=== PATIENT | male | born 1990 | race Two or more races ===

== ENCOUNTER 2025-04-14 08:25 | Inpatient (IN) | payer OTHER ==
[2025-04-14] VITALS (24 sets, daily range): BP systolic 98–161; BP diastolic 57–144; TEMP 100.2–101; O2SAT 98–100
[~2025-04-14] VITALS: Ht 172.7 cm; Wt 59.4 kg
[~2025-04-14 08:25] MED LIST: ACET-868 GT; ACET160L44 GT; AMAN50SY GT; AMIN30LI66 GT; AMLO5TAB4 GT; ASCO-352 GT; BISA10SU11 RC; CHLO473M5 MM; CRAN425C6 GT; DOCU100T2 GT; ENOX30DI5 SQ; FAMO40TA7 GT; GENT5DRO23 EACHEYE; GLYC2TAB21 GT; HYDR-4076 GT; HYDR15SO11 GT; LEVA0.6320 IH; LEVE100S GT; MAGN400O6 GT; MULT-447 GT; NA P133E RC; NUTR250L62 GT; ONDA4TAB5 GT; PHEN50TA4 GT; PHEN64.8 GT; POLY17PO4 GT; PROP40TA7 GT; SENN-291 GT; TOBR40VI2 IV
[2025-04-14] MEDS: PIPERACILLIN /TAZOBACTAM 3.375 G in IV D5W 50 ML IV ONE (08:30)
[2025-04-14] MEDS ORDERED: ACETAMINOPHEN 650 MG/SUPP.RECT RC ONE (08:32)
[2025-04-14] MEDS: IV NS 0.9% 1,000 ML BAG IV ONE (08:40)
[2025-04-14 08:45] LABS: PLATELET COUNT (AUTO) 377 K/uL (150-450); RED BLOOD CELL COUNT(AUTO) 2.94 MIL/uL (4.5-6.0); RED CELL DISTRIBUTION WIDTH 16.3 % (11.5-15.0); WHITE BLOOD COUNT (AUTO) 19.8 K/uL (4.3-11.0)
[2025-04-14] MEDS: ACETAMINOPHEN 650 MG/SUPP.RECT RC ONE (08:49)
[2025-04-14 09:00] LABS: CALCIUM, SERUM 8.9 mg/dL (8.5-10.1); CREATININE 0.5 mg/dL (0.6-1.3); SODIUM SERUM 146.0 mmol/L (136-145); UREA NITROGEN, BLOOD 20.0 mg/dL (7-18)
[2025-04-14] MEDS: VANCOMYCIN 1 GM in IV D5W 250 ML IV ONE (09:00)
[2025-04-14 09:04] LABS: INR 1.13 (0.91-1.10)
[2025-04-14 09:05] LABS: ASPARTATE AMINOTRANSFERASE 15.0 U/L (15-37); TOTAL PROTEIN, SERUM 8.0 g/dL (6.4-8.2)
[2025-04-14 09:09] LABS: LACTIC ACID 1.2 mmol/L (0.4-2.0)
[2025-04-14 09:19] LABS: ABG BASE EXCESS 1.3 mmol/L (-2.0-3.0); ABG OXYGEN SATURATION 99.0 % (94.0-98.0); ABG PCO2 35.2 mmHg (35.0-48.0); ABG PH 7.465 (7.350-7.450); ABG PO2 156.7 mmHg (83.0-108.0); ABG TOTAL HEMOGLOBIN 11.0 G/dL (13.5-17.5); FLOW, BLOOD GAS 4.00 L/min (0.00-30.00); FRACTIONATED INSPIRED OXYGEN 37.0 %; SITE, ABG RIGHT RADIAL
[2025-04-14] MEDS ORDERED: ACET325T53 GT (09:41)
[2025-04-14] MEDS ORDERED: ZINC50TA69 GT (09:41)
[2025-04-14] MEDS ORDERED: MULT9LIQ9 GT (09:41)
[2025-04-14] MEDS ORDERED: TRAM50TA2 PO (09:41)
[2025-04-14] MEDS ORDERED: METO25TA20 GT (09:41)
[2025-04-14 10:57] LABS: APPEARANCE,URINE SLIGHTLY CLOUDY (CLEAR); BLOOD, URINE NEGATIVE Ery/uL (NEGATIVE); LEUKOCYTE ESTERASE ,URINE 1+ (NEGATIVE); NITRITE, URINE NEGATIVE (NEGATIVE); UGLUCOSE NEGATIVE (NEGATIVE)
[2025-04-14 11:06] LABS: ADD URINE CULTURE YES; CALCIUM OXALATE CRYSTALS,UR Rare /HPF (None Seen); SQUAMOUS EPITHELIAL CELL,UR 0-2 /HPF (None Seen)
[2025-04-14] MEDS ORDERED: Z GUARD REMEDY 4 OZ OINT TP PRN (12:00)
[2025-04-14] MEDS ORDERED: ONDANSETRON HCL/PF 4 MG/2 ML VIAL IVP PRN (12:00)
[2025-04-14] MEDS ORDERED: DOSING PER PHARMACY-VANCOMYCIN IV XX PRN (12:30)
[2025-04-14] MEDS ORDERED: DOSING PER PHARMACY-TOBRAMYCIN IV XX PRN (12:30)
[2025-04-14] MEDS: ENOXAPARIN SODIUM 40 MG/0.4 ML DISP.SYRIN SQ SCH (15:36)
[2025-04-14] MEDS: MEROPENEM 1 G in IV NS 0.9% 100 ML IV SCH (15:39)
[2025-04-14] MEDS: DAKINS FULL STRENGTH (0.5%) 480 ML BOTTLE TOP SCH (15:39)
[2025-04-14] MEDS: IV NS 0.9% 1,000 ML IV PRN (15:44)
[2025-04-14] MEDS: VANCOMYCIN 1 GM in IV D5W 250ml IV SCH (16:44)
[2025-04-14] MEDS: ACETAMINOPHEN 650 MG/SUPP.RECT RC PRN (19:51)
[2025-04-15] VITALS (27 sets, daily range): BP systolic 108–138; BP diastolic 60–93; TEMP 98.3–101.3; O2SAT 96–100
[2025-04-15 04:33] LABS: PLATELET COUNT (AUTO) 293 K/uL (150-450); RED BLOOD CELL COUNT(AUTO) 2.44 MIL/uL (4.5-6.0); RED CELL DISTRIBUTION WIDTH 15.9 % (11.5-15.0); WHITE BLOOD COUNT (AUTO) 8.3 K/uL (4.3-11.0)
[2025-04-15 04:47] LABS: CALCIUM, SERUM 8.9 mg/dL (8.5-10.1); CREATININE 0.4 mg/dL (0.6-1.3); PHOSPHORUS 3.8 mg/dL (2.5-4.9); SODIUM SERUM 146.0 mmol/L (136-145); UREA NITROGEN, BLOOD 13.0 mg/dL (7-18)
[2025-04-15] MEDS ORDERED: DOSING PER PHARMACY-GENTAMICIN IV XX PRN (08:30)
[2025-04-15] MEDS: PANTOPRAZOLE 40 MG VIAL IV SCH (09:06)
[2025-04-15] MEDS: GENTAMICIN 320 MG in IV D5W 100 ML IV SCH (09:35)
[2025-04-16] VITALS: BP 144/94; TEMP 98.5; O2SAT 96
== END 2025-04-16 02:20 | disposition short-term general hospital (02) | DRG 698 ==
LOC: ER 08:27 → ICU 12:07 → TELE1 04-15 18:48
PROVIDERS: ATTEND Internal Medicine
DX: T83.511A Infection and inflammatory reaction due to indwelling urethral catheter, initial encounter (principal); A41.9 Sepsis, unspecified organism; J96.21 Acute and chronic respiratory failure with hypoxia; R53.2 Functional quadriplegia; R40.3 Persistent vegetative state; E87.0 Hyperosmolality and hypernatremia; L89.159 Pressure ulcer of sacral region, unspecified stage; N39.0 Urinary tract infection, site not specified; Z79.01 Long term (current) use of anticoagulants; Z93.0 Tracheostomy status; I10 Essential (primary) hypertension; G40.909 Epilepsy, unspecified, not intractable, without status epilepticus; Y84.6 Urinary catheterization as the cause of abnormal reaction of the patient, or of later complication, without mention of misadventure at the time of the procedure; Y92.129 Unspecified place in nursing home as the place of occurrence of the external cause; Z20.822 Contact with and (suspected) exposure to COVID-19; Z87.440 Personal history of urinary (tract) infections; Z79.899 Other long term (current) drug therapy; Z87.820 Personal history of traumatic brain injury; V89.2XXS Person injured in unspecified motor-vehicle accident, traffic, sequela; Z93.1 Gastrostomy status; M62.49 Contracture of muscle, multiple sites; Z79.51 Long term (current) use of inhaled steroids; E86.0 Dehydration
CPT/HCPCS: 31720; 36415; 36600; 71045-TC; 80048-TC; 80076-TC; 80170-TC; 80202-TC; 81001; 82803-TC; 82962-TC; 83605-TC; 83735-TC; 84100-TC; 85025-TC; 85730-TC; 87040-TC; 87081-TC; 87086-TC; 87186-TC; 93307-TC; 94640-TC; 94799-TC; A4223; A6254; A6403; G0378; J1580; J1650; J2185; J2470; J2543; J3373; J7030; J7060